=== PATIENT | female | born 1995 | race Caucasian/White ===

== ENCOUNTER 2024-02-02 10:42 | Observation (INO) ==
--- NOTE | 2024-02-02 11:38 | CT Scan Report ---
CT OF THE HEAD WITHOUT CONTRAST CLINICAL HISTORY: Headache. COMPARISON STUDY: No previous studies for comparison. CT DOSE: 547.75 mGy.cm TECHNIQUE: Helical axial images of the head were obtained without IV contrast. Automated exposure con trol was utilized for the study. A dose lowering technique was utilized adhering to the principles o f ALARA. FINDINGS: No acute intracranial hemorrhage, midline shift or mass effect is present. There is no evid ence for hydrocephalus. 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 Basal cisterns are patent. There are no extra-axial collections. A small hypodense tract within the left frontal lobe is likely related to suspected previous shunt catheter/postoperative change given overlying neel hole. This is chronic. There are no findings to suggest acute dural sinus thrombosis or acute territorial infarct. IMPRESSION: No acute intracranial findings. ACT 112: Negative or not required by law. Electronically signed by: Anthony Wilburn M.D. 02/02/2024 11:36 AM
[2024-02-02 11:47] LABS: Basophils # (auto) 0.07 K/uL (0.00-0.20); Eosinophils # (auto) 0.12 K/uL (0.00-0.50); Eosinophils % (auto) 1.8 %; Hematocrit (blood only) 39.3 % (37.0-47.0); Hemoglobin 12.8 g/dl (12.0-16.0); Immature Granulocytes # (auto) 0.02 K/uL (0.01-0.20); Immature Granulocytes % (auto) 0.3 %; Lymphocytes % (auto) 32.1 %; Mean Corpuscular Hemoglobin 27.6 pg (25.0-34.0); Mean Corpuscular Hgb Conc 32.6 g/dL (32.0-36.0); Mean Corpuscular Volume 84.7 fL (80.0-100.0); Mean Platelet Volume 10.4 fL (9.4-12.4); Monocytes # (auto) 0.43 K/uL (0.11-0.59); Monocytes % (auto) 6.3 %; Neutrophils # (auto) 4.01 K/uL (1.40-6.50); Neutrophils % (auto) 58.5 %; Platelet Count 274 K/uL (130-400); RDW Coefficient of Variation 12.1 % (11.5-14.5); RDW Standard Deviation 36.9 fL (36.4-46.3); Red Blood Count 4.64 M/uL (4.20-5.40); White Blood Count 6.85 K/ul (4.8-10.8)
[2024-02-02 11:54] LABS: Albumin Globulin Ratio 1.5 (0.9-2); Albumin Level 4.5 gm/dl (3.4-5.0); BUN Creatinine Ratio 20.3 (10-20); Bilirubin,Total 0.3 mg/dl (0.2-1.0); Calcium 9.2 mg/dl (8.6-10.3); Creatinine Clr Calc Pharmacy 97.1 ml/min; Est GFR (African American) 118.9 ml/min; Est GFR (Non-African American) 102.6 ml/min; Globulin 3.1 gm/dl (2.5-4.0); Potassium 3.7 mmol/L (3.5-5.1); Total Protein 7.6 gm/dl (6.0-8.3)
[2024-02-02 12:19] LABS: Appearance Urine Clear (Clear); Bacteria Urine Automated 1+ (None Seen); Bilirubin Urine Negative (Negative); Blood Urine Negative (Negative); Cast Urine Automated 0-2 /lpf (0-2); Color Urine Yellow; Glucose Urine UA Negative (Negative); Ketones Urine Negative (Negative); Leukocyte Esterase Urine 1+ (Negative); Nitrite Urine Negative (Negative); Protein Urine Negative (Negative); RBC Urine Automated 0-2 /hpf (0-2); Specific Gravity Urine 1.013 (1.000-1.030); Urobilinogen Urine Negative (Negative); pH Urine 5.5 (4.5-7.5)
--- NOTE | 2024-02-02 12:29 | Emergency Department Note ---
Impression & Plan Seizure, Confusion, Expressive aphasia ED Provider Note NAME: YANNI FISCHER AGE: 28 SEX: F : 1995 ARRIVES VIA: Walk-In INFORMANT: Patient ED PROVIDER(S): Selwyn Fall DO CHIEF COMPLAINT: Slurred speech, tremors HPI: Patient is a 28-year-old female who presents to the ER for tremors in the bilateral arms and in the bilateral face today. This has been going on for the past 2 weeks per the significant other who gives additional history. Associated with this she has some expressive aphasia. She denies any change or loss of vision. No chest pain or shortness of breath. No weakness or numbness in the arms or legs. 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 She had this done in [place]. ADDITIONAL HISTORY OBTAINED: Per HPI Chronic Medical/Social Conditions Affecting Care: Per HPI PAST MEDICAL HISTORY:See Below PAST SURGICAL HISTORY:See Below FAMILY HISTORY:See Below SOCIAL HISTORY:See Below HOME MEDICATIONS:See Below ALLERGIES:See Below VITALS:See Below PHYSICAL EXAMINATION: GENERAL: Sitting up in bed, alert, well appearing, well nourished, no distress, non-toxic EYE EXAM: normal conjunctiva. PERRL and EOM's grossly intact. OROPHARYNX: no exudate, no erythema, lips, buccal mucosa, and tongue normal and mucous membranes are moist NECK: supple, no nuchal rigidity, no adenopathy, non-tender LUNGS: Clear to auscultation. Normal chest wall mechanics HEART: no murmurs, S1 normal and S2 normal ABDOMEN: abdomen soft, non-tender, normo-active bowel sounds, no masses, no rebound or guarding. BACK: Back is symmetrical on inspection and there is no deformity, no midline tenderness, no CVA tenderness. SKIN: no rashes and no bruising UPPER EXTREMITIES: upper extremities are grossly normal. LOWER EXTREMITIES: No pitting edema. NEURO EXAM: Normal sensorium, cranial nerves II-XII intact, normal speech, no weakness of arms, no weakness of legs. No drift. Finger to nose intact. Gross sensation intact. MEDICAL DECISION MAKING: Patient is a 28-year-old female who presents ER for the above-stated complaint. IV was established blood work was obtained. Labs show no significant leukocytosis or anemia. BMP with slightly elevated chloride at 108. LFTs bilirubin was unremarkable. UA was slightly contaminated. was negative. CT angios of the head and neck was negative for any acute pathology. Her she telestroke was consulted and evaluated the patient at bedside. They felt that this was most consistent with focal seizures. They recommended Keppra 750 twice daily until Lamictal was titrated up to 125 twice daily over the next several weeks. They recommended admission MRI and EEG. This was discussed with the hospitalist for further evaluation management and treatment. Consults/Care Managements Discussions: Per [facility] Triage Nursing notes reviewed. Limited review of prior medical records performed Vital Signs: reviewed and remarkable for no significant abnormalities Differential diagnosis: Differential Diagnosis includes but is not limited to ischemic Stroke, hemorrhagic stroke, bells palsy, mass, neoplasm, migraine headache, seizure, subarachnoid hemorrhage, TIA, and transient global amnesia. ER treatment provided: See below Diagnostics interpreted by me include EKG and cardiac monitoring as listed below: -Cardiac Monitoring: An order was placed for continuous cardiac monitoring. The monitor shows a rate of 60 with sinus rhythm. -ECG: Sinus rhythm rate 55 Normal axis No PVCs QTc 422 -Laboratory studies:Interpreted by me as stated above in MDM and shown below. Imaging studies: Xrays: As interpreted by me:none CTs show: CT of the head per my preliminary interpretation showed no obvious large bleed CT of the head and angios of the head and neck were negative for any acute pathology per radiology Procedures:none Critical Care: None Past Med/Surg History Problem List (Updated 02/02/24 @ 17:53 by Selwyn Fall DO) Expressive aphasia (Acute) Confusion (Acute) Partial seizure Seizure (Acute) Back pain (Acute) Vomiting (Acute) Medical History (Updated 02/02/24 @ 17:53 by Selwyn Fall DO) History of mood disorder Surgical History (Updated 02/02/24 @ 15:41 by Niki Arcos PA-C) Hx of bilateral salpingectomy Hx of tympanostomy tubes Hx of cholecystectomy 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 Cyst resulting in hydrocephalus Family History (Updated 02/02/24 @ 15:42 by Niki Arcos PA-C) Denies family history of Seizure Stroke Social History (Updated 02/02/24 @ 15:42 by Niki Arcos PA-C) Smoking Status: Current every day smoker Tobacco Type: E-cigarettes / Vaping Preferred Language: [place] Islander Communication Ability: Effective marital status: Feels Safe at Home: Yes Allergies Allergies Allergy/AdvReac Type Severity Reaction Status Date / Time No Known Allergies Allergy Unverified 05/28/16 23:33 Home Meds Home Medications Medication Instructions Recorded Confirmed Lamotrigine (Lamictal) 25 mg PO BID #0 tabs 05/28/16 02/02/24 alprazolam 0.25 mg tablet 0.25 mg PO QID PRN Anxiety 02/02/24 02/02/24 dicyclomine 10 mg capsule 10 mg PO QID PRN cramping 02/02/24 02/02/24 Previous Rx's Medication Instructions Recorded levetiracetam 750 mg tablet 750 mg PO BID #60 tabs 02/02/24 (Keppra) Results & Data (ED) Vital Signs Vital Signs - 24 hr 02/02/24 11:02 02/02/24 12:50 02/02/24 13:06 Temperature 36.8 C Temperature Source Temporal Artery Scan Pulse Rate 95 H Pulse Rate [Apical] 53 L Pulse Rhythm Regular Pulse Rhythm [Apical] Pulse Strength Normal Pulse Strength [Apical] Respiratory Rate 20 20 18 Respiratory Effort / Characteristics Non-Labored Spontaneous Non-Labored Respiratory Depth Normal Normal Respiratory Pattern Blood Pressure 130/64 Blood Pressure [Left Arm] 100/59 L 106/67 Blood Pressure Mean 86 Blood Pressure Mean [Left Arm] 72 80 Blood Pressure Position [Left Arm] Lying Pulse Oximetry 99 100 100 Oxygen Delivery Method Room Air Room Air Room Air Sepsis Recent Fever Within 48 Hours No Sepsis New/Unexplained Change in Mental Status N/A Sepsis Action Taken by Nursing No Action Required 02/02/24 14:47 Temperature Temperature Source Pulse Rate Pulse Rate [Apical] 59 L Pulse Rhythm Pulse Rhythm [Apical] Regular Pulse Strength Pulse Strength [Apical] Normal Respiratory Rate 16 Respiratory Effort / Characteristics Non-Labored Respiratory Depth Normal Respiratory Pattern Regular Blood Pressure Blood Pressure [Left Arm] 114/80 Blood Pressure Mean Blood Pressure Mean [Left Arm] 91 Blood Pressure Position [Left Arm] Lying Pulse Oximetry 100 Oxygen Delivery Method Room Air Sepsis Recent Fever Within 48 Hours Sepsis New/Unexplained Change in Mental Status Sepsis Action Taken by Nursing Laboratory Data 02/02/24 11:15 02/02/24 11:15 Lab Results 02/02/24 02/02/24 02/02/24 Range/Units 11:15 11:59 12:03 WBC 6.85 (4.8-10.8) K/ul RBC 4.64 (4.20-5.40) M/uL Hgb 12.8 (12.0-16.0) g/dl Hct 39.3 (37.0-47.0) % MCV 84.7 (80.0-100.0) fL MCH 27.6 (25.0-34.0) pg MCHC 32.6 (32.0-36.0) g/dL RDW Std Deviation 36.9 (36.4-46.3) fL RDW Coeff of Gabe 12.1 (11.5-14.5) % Plt Count 274 (130-400) K/uL MPV 10.4 (9.4-12.4) fL Immature Gran % (Auto) 0.3 % Neut % (Auto) 58.5 % Lymph % (Auto) 32.1 % [place] % (Auto) 6.3 % Eos % (Auto) 1.8 % Baso % (Auto) 1.0 % Neut # (Auto) 4.01 (1.40-6.50) K/uL Lymph # (Auto) 2.20 (1.20-3.40) K/uL [place] # (Auto) 0.43 (0.11-0.59) K/uL Eos # (Auto) 0.12 (0.00-0.50) K/uL Baso # (Auto) 0.07 (0.00-0.20) K/uL Immature Gran # (Auto) 0.02 (0.01-0.20) K/uL Sodium 136 (136-145) mmol/L Potassium 3.7 (3.5-5.1) mmol/L Chloride 108 H (98-107) mmol/L Carbon Dioxide 23 (21-32) mmol/L Anion Gap 5 (3-11) BUN 16 (6-23) mg/dl Creatinine 0.79 (0.6-1.2) mg/dl Est Cr Clr Drug Dosing 97.1 ml/min Est GFR ( Amer) 118.9 ml/min Est GFR (Non-Af Amer) 102.6 ml/min BUN/Creatinine Ratio 20.3 H (10-20) Glucose 101 H (70-99(Fasting)) mg/dl Calcium 9.2 (8.6-10.3) mg/dl Total Bilirubin 0.3 (0.2-1.0) mg/dl AST 16 (13-39) U/L ALT 11 (7-52) U/L Alkaline Phosphatase 55 (34-104) U/L Total Protein 7.6 (6.0-8.3) gm/dl Albumin 4.5 (3.4-5.0) gm/dl Globulin 3.1 (2.5-4.0) gm/dl Albumin/Globulin Ratio 1.5 (0.9-2) Urine Color Yellow Urine Appearance Clear (Clear) Urine pH 5.5 (4.5-7.5) Ur Specific [place] 1.013 (1.000-1.030) Urine Protein Negative (Negative) Urine Glucose (UA) Negative (Negative) Urine Ketones Negative (Negative) Urine Blood Negative (Negative) Urine Nitrite Negative (Negative) Urine Bilirubin Negative (Negative) Urine Urobilinogen Negative (Negative) Ur Leukocyte Esterase 1+ H (Negative) Urine WBC (Auto) 6-10 H (0-5) /hpf Urine RBC (Auto) 0-2 (0-2) /hpf U Hyaline Cast (Auto) 0-2 (0-2) /lpf U Epithel Cells (Auto) 3-5 H (0-2) /hpf Urine Bacteria (Auto) 1+ H (None Seen) POC Ur Test NEG (NEG) Administered Medications Lactated Ringer's (Lr) 1,000 mls @ 125 mls/hr IV .Q8H [facility] Stop: 02/02/24 23:59 Last Admin: 02/02/24 16:52 Dose: 125 mls/hr Documented By: NICHOLAS Discontinued Medications Ioversol (Optiray 320 125ml) 120 ml IV ONCE ONE Stop: 02/02/24 13:02 Last Admin: 02/02/24 13:02 Dose: 120 ml Documented By: NARINDER Levetiracetam (Levetiracetam 250 Mg Tab) 750 mg PO NOW STA Stop: 02/02/24 14:22 Last Admin: 02/02/24 14:47 Dose: 750 mg Documented By: MARQUISE Imaging Data Radiologist's Impression: Head CT 02/02/24 11:07 CT OF THE HEAD WITHOUT CONTRAST CLINICAL HISTORY: Headache. COMPARISON STUDY: No previous studies for comparison. CT DOSE: 547.75 mGy.cm TECHNIQUE: Helical axial images of the head were obtained without IV contrast. Automated exposure control was utilized for the study. A dose lowering technique was utilized adhering to the principles of ALARA. FINDINGS: No acute intracranial hemorrhage, midline shift or mass effect is present. There is no evidence for hydrocephalus. 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 Basal cisterns are patent. There are no extra-axial collections. A small hypodense tract within the left frontal lobe is likely related to suspected previous shunt catheter/postoperative change given overlying neel hole. This is chronic. There are no findings to suggest acute dural sinus thrombosis or acute territorial infarct. IMPRESSION: No acute intracranial findings. ACT 112: Negative or not required by law. Electronically signed by: Anthony Wilburn M.D. 02/02/2024 11:36 AM Head CTA 02/02/24 12:29 HEAD CTA HISTORY: slurred speech TECHNIQUE: Multiaxial CT images of the head were performed following the intravenous administration of contrast to evaluate the major cerebral vessels. 3D/MIP images were also obtained. Sagittal and coronal reformats were reviewed. A dose lowering technique was utilized adhering to the principles of ALARA. COMPARISON: None. FINDINGS: There is no mass, hematoma, midline shift, or acute infarct. Visualized intracranial internal carotid arteries, distal vertebral arteries, and basilar artery are widely patent. There is no significant stenosis, occlusion, or aneurysm seen within the bilateral ACAs, MCAs, or corporate tax manager. The major dural venous sinuses are patent. IMPRESSION: No significant stenosis, occlusion, or aneurysm within the [place] of [place]. ACT 112: Negative or not required by law. Electronically signed by: Javad Webber M.D. 02/02/2024 1:34 PM Neck CTA 02/02/24 12:29 CT ANGIOGRAM OF THE NECK CLINICAL HISTORY: Slurred speech. COMPARISON STUDY: No priors. TECHNIQUE: Following the IV administration of 120 of Optiray 320, CT angiogram of the neck was performed from the aortic arch to the skull base. Images are reviewed in the axial, sagittal, and coronal planes. 3-D MIPS images are created and assessed. IV contrast was administered without complication. All measurements were calculated based on NASCET criteria. A dose lowering technique was utilized adhering to the principles of ALARA. CT DOSE: 460.15 mGy.cm FINDINGS: Thoracic aorta: Visualized portions of the thoracic aorta are normal in caliber. The aortic arch demonstrates standard 3-vessel anatomy. Right carotid arterial system: The right common carotid artery is widely patent, as are the right internal and external carotid arteries. Left carotid arterial system: The left common carotid artery is widely patent, as are the left internal and external carotid arteries. Vertebral arteries: The vertebral arteries are widely patent bilaterally and codominant. Subclavian arteries: Widely patent bilaterally. Intracranial vasculature: The visualized intracranial vessels at the skull base are patent. Jugular veins: Widely patent bilaterally. Brain parenchyma: The visualized brain parenchyma the skull base is within normal limits. Lung apices: Partially visualized upper lobe lung parenchyma appears clear. Soft tissues: The visualized pharyngeal soft tissues are normal in appearance noting angiographic phase technique. The oropharyngeal airway appears widely patent. The salivary and thyroid glands are normal in appearance. No cervical lymphadenopathy is seen. Skeletal structures: The visualized calvarium at the skull base appears intact. The imaged cervical spine is within normal limits. Sinuses and mastoids: The visualized paranasal sinuses are clear. The mastoid air cells are well pneumatized. IMPRESSION: Unremarkable CT angiogram of the neck. ACT 112: Negative or not required by law. Electronically signed by: Jorge Davidson M.D. 02/02/2024 2:00 PM Discharge Plan Visit Data Chief Complaint: Head Pain Stated Complaint: TREMORS, HX OF BRAIN CYST DRAIN ED Provider: Selwyn Fall Discharge Problem: Seizure, Confusion, Expressive aphasia Patient Disposition: Admitted As Inpatient Discharge Instructions Interventions: ED Discharge Assessment Last Done: 02/02/24 16:34
[2024-02-02] MEDS: OPTIRAY 320 125ml IV ONE (13:02)
--- NOTE | 2024-02-02 13:35 | CT Scan Report ---
HEAD CTA HISTORY: slurred speech TECHNIQUE: Multiaxial CT images of the head were performed following the intravenous administration o f contrast to evaluate the major cerebral vessels. 3D/MIP images were also obtained. Sagittal and co jacob reformats were reviewed. A dose lowering technique was utilized adhering to the principles of A ABBIE. COMPARISON: None. FINDINGS: There is no mass, hematoma, midline shift, or acute infarct. Visualized intracranial business development intern al carotid arteries, distal vertebral arteries, and basilar artery are widely patent. There is no sig nificant stenosis, occlusion, or aneurysm seen within the bilateral ACAs, MCAs, or concrete smoother. The major du ral venous sinuses are patent. IMPRESSION: No significant stenosis, occlusion, or aneurysm within the [place] of [place]. ACT 112: Negative or not required by law. Electronically signed by: Javad Webber M.D. 02/02/2024 1:34 PM
--- NOTE | 2024-02-02 14:01 | CT Scan Report ---
CT ANGIOGRAM OF THE NECK CLINICAL HISTORY: Slurred speech. COMPARISON STUDY: No priors. TECHNIQUE: Following the IV administration of 120 of Optiray 320, CT angiogram of the neck was perfor med from the aortic arch to the skull base. Images are reviewed in the axial, sagittal, and coronal p lanes. 3-D MIPS images are created and assessed. IV contrast was administered without complication. A ll measurements were calculated based on NASCET criteria. A dose lowering technique was utilized adh ering to the principles of ALARA. CT DOSE: 460.15 mGy.cm FINDINGS: Thoracic aorta: Visualized portions of the thoracic aorta are normal in caliber. The aortic arch demo nstrates standard 3-vessel anatomy. Right carotid arterial system: The right common carotid artery is widely patent, as are the right int ernal and external carotid arteries. Left carotid arterial system: The left common carotid artery is widely patent, as are the left rn international al and external carotid arteries. Vertebral arteries: The vertebral arteries are widely patent bilaterally and codominant. Subclavian arteries: Widely patent bilaterally. Intracranial vasculature: The visualized intracranial vessels at the skull base are patent. Jugular veins: Widely patent bilaterally. Brain parenchyma: The visualized brain parenchyma the skull base is within normal limits. Lung apices: Partially visualized upper lobe lung parenchyma appears clear. Soft tissues: The visualized pharyngeal soft tissues are normal in appearance noting angiographic pha se technique. The oropharyngeal airway appears widely patent. The salivary and thyroid glands are nor mal in appearance. No cervical lymphadenopathy is seen. Skeletal structures: The visualized calvarium at the skull base appears intact. The imaged cervical s pine is within normal limits. Sinuses and mastoids: The visualized paranasal sinuses are clear. The mastoid air cells are well pneu matized. IMPRESSION: Unremarkable CT angiogram of the neck. ACT 112: Negative or not required by law. Electronically signed by: Jorge Davidson M.D. 02/02/2024 2:00 PM
[2024-02-02] MEDS: levETIRAcetam 250 MG TAB PO STA (14:47)
--- NOTE | 2024-02-02 15:13 | History & Physical Report ---
Date of Service February 02, 2024 Assessment & Plan (1) Partial seizure: (2) Hx of craniotomy: Plan This is a 28-year-old female who has a significant past medical history of mood disorder, 3 vaginal births and history of CVI cyst s/p craniotomy and fenestration who presents to ED after having episodes of twitching/tremoring of hands/arms/face off and on for the last 2-3 weeks. Pt reports twitching, tremoring of upper extremities, lower eye lids , hands for 3 weeks that would happen daily with a period of extreme fatigue after that could last several hours. CT head, CTA head and neck negative in ED. 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 Nunez Last MRI 10/28 revealed decreasing size which now measures 3.7 x 2.2 x 2.2 cm obtain EEG, MRI Brain seizure protocol, neuro checks, a.m. labs Keppra 750mg BID started in ED Pt already on lamictal for mood stabilization 25mg bid, Tele neuro recommends increasing to 25mg in a.m. and 50mg in p.m.; titrate up by 25mg weekly towards a gaol of 250mg bid prn IV ativan for break through seizure if needed LR 125cc/hr x 1 L Consult [facility] neurology, she will need close OP follow up Abnormal Urinalysis UA with leuks, epis, bacturia, possible contaminant pt denies sx and is w/o fever or leukocytosis monitor urine culture DVT ppx: encourage ambulation FULL CODE PCP: Roxy Gregg Pt was seen and examined in collaboration with Dr. Roche, please see addendum A total of 60 minutes was spent coordinating, documenting, and providing care for this patient excluding time spent in the performance of separately billed services. This included personally viewing all current laboratories and imaging studies, medication reconciliation, outpatient chart review, and discussion with specialists. History of Present Illness Chief Complaint: Twitching of eyes/arms/face off and on x 2-3 weeks. Primary Care Provider: Roxy Gregg This is a 28-year-old female who has a significant past medical history of mood disorder, 3 vaginal births and history of CVI cyst s/p craniotomy and fenestration who presents to ED after having episodes of twitching/tremoring of hands/arms/face off and on for the last 2-3 weeks. She reports the tremoring of her arms reminds her of her grandpap due to his older age. She has never had anything like this before. She states episodes would last sevreal minutes, resolve and then she would be extremely tired after episodes. Sometimes somnolence would last a few hours. She and her work at the [employer]. She got an episode today and became extremely fatigued after. She called her neurologist at [facility] who urged her to get a neurological evaluation. 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 In June of 2023 she was in an accident that prompted a CT scan. CT in June revealed cyst grew 10x causing hydrocephalus. She reports the last 2 years having cluster headaches and short term memory issues. 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 She was initially seen at [facility] who referred her to [facility] where she underwent L craniotomy with neel hole, put holes in cyst with fenestration. Her last MRI was november 02, 2023 which revealed interval decrease in size of the cyst. They do not have her following up for approx 1 year. Her Neurologist is Dr Nunez of [facility]. Currently she feels tired. She denies f/c/s, chest pain, sob, n/v/d, abd pain. Her appetite has been okay. She reports being on antiseizure medication 2 weeks post op from brain surgery, but those have since been discontinued. in ED patient was seen and evaluated by [facility] telestroke in which it was suspected that she was experiencing partial seizures. It was recommended she be admitted to telemetry floor and start on Lamictal titration as well as Keppra 750 mg twice daily. Patient is currently already on Lamictal 25 mg twice daily for mood stabilization. It is also recommended that MRI and EEG be performed. Allergies Allergy/AdvReac Type Severity Reaction Status Date / Time No Known Allergies Allergy Unverified 05/28/16 23:33 Home Medications Medication Instructions Recorded Confirmed Type Lamotrigine (Lamictal) 25 mg PO BID #0 tabs 05/28/16 02/02/24 History alprazolam 0.25 mg tablet 0.25 mg PO QID PRN Anxiety 02/02/24 02/02/24 History dicyclomine 10 mg capsule 10 mg PO QID PRN cramping 02/02/24 02/02/24 History levetiracetam 750 mg tablet 750 mg PO BID #60 tabs 02/02/24 Rx (Keppra) Past Med/Surg History Problem List (Updated 02/02/24 @ 17:53 by Selwyn Fall DO) Expressive aphasia (Acute) Confusion (Acute) Partial seizure Seizure (Acute) Back pain (Acute) Vomiting (Acute) Medical History (Updated 02/02/24 @ 17:53 by Selwyn Fall DO) History of mood disorder Surgical History (Updated 02/02/24 @ 15:41 by Niki Arcos PA-C) Hx of bilateral salpingectomy Hx of tympanostomy tubes Hx of cholecystectomy 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 Cyst resulting in hydrocephalus Family History (Updated 02/02/24 @ 15:42 by Niki Arcos PA-C) Denies family history of Seizure Stroke Social History (Updated 02/02/24 @ 15:42 by Niki Arcos PA-C) Smoking Status: Never smoker Hx Alcohol Use: Yes Alcohol type: beer, wine and hard liquor Hx Substance Use: No Preferred Language: Spanish Communication Ability: Effective [employer] Required: No Beliefs That Will Affect Care: None marital status: Current Living Situation: Spouse Other Information That Helps Us Care for You: No Feels Safe at Home: Yes Safety Concerns: Feels Safe At This Time Assistive Devices: Glasses Review of Systems Review of Systems: All systems reviewed & are unremarkable except as noted in HPI & below Results & Data Results & Data Vital Signs (Past 12 Hours) Vital Signs Temp Pulse Pulse Resp BP BP Pulse Ox 02/02/24 14:47 59 L 16 114/80 100 02/02/24 13:06 18 106/67 100 02/02/24 12:50 53 L 20 100/59 L 100 02/02/24 11:02 36.8 C 95 H 20 130/64 99 O2 Del Method 02/02/24 14:47 Room Air 02/02/24 13:06 Room Air 02/02/24 12:50 Room Air 02/02/24 11:02 Room Air Laboratory Results I have independently reviewed and interpreted patient's admitting labs including CBC, CMP, UA Diagnostic Findings Head CT 02/02/24 11:07 CT OF THE HEAD WITHOUT CONTRAST CLINICAL HISTORY: Headache. COMPARISON STUDY: No previous studies for comparison. CT DOSE: 547.75 mGy.cm TECHNIQUE: Helical axial images of the head were obtained without IV contrast. Automated exposure control was utilized for the study. A dose lowering technique was utilized adhering to the principles of ALARA. FINDINGS: No acute intracranial hemorrhage, midline shift or mass effect is present. There is no evidence for hydrocephalus. 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 Basal cisterns are patent. There are no extra-axial collections. A small hypodense tract within the left frontal lobe is likely related to suspected previous shunt catheter/postoperative change given overlying neel hole. This is chronic. There are no findings to suggest acute dural sinus thrombosis or acute territorial infarct. IMPRESSION: No acute intracranial findings. ACT 112: Negative or not required by law. Electronically signed by: Anthony Wilburn M.D. 02/02/2024 11:36 AM Head CTA 02/02/24 12:29 HEAD CTA HISTORY: slurred speech TECHNIQUE: Multiaxial CT images of the head were performed following the intravenous administration of contrast to evaluate the major cerebral vessels. 3D/MIP images were also obtained. Sagittal and coronal reformats were reviewed. A dose lowering technique was utilized adhering to the principles of ALARA. COMPARISON: None. FINDINGS: There is no mass, hematoma, midline shift, or acute infarct. Visualized intracranial internal carotid arteries, distal vertebral arteries, and basilar artery are widely patent. There is no significant stenosis, occlusion, or aneurysm seen within the bilateral ACAs, MCAs, or sexual abuse counsellor. The major dural venous sinuses are patent. IMPRESSION: No significant stenosis, occlusion, or aneurysm within the [place]. ACT 112: Negative or not required by law. Electronically signed by: Javad Webber M.D. 02/02/2024 1:34 PM Neck CTA 02/02/24 12:29 CT ANGIOGRAM OF THE NECK CLINICAL HISTORY: Slurred speech. COMPARISON STUDY: No priors. TECHNIQUE: Following the IV administration of 120 of Optiray 320, CT angiogram of the neck was performed from the aortic arch to the skull base. Images are reviewed in the axial, sagittal, and coronal planes. 3-D MIPS images are created and assessed. IV contrast was administered without complication. All measurements were calculated based on NASCET criteria. A dose lowering technique was utilized adhering to the principles of ALARA. CT DOSE: 460.15 mGy.cm FINDINGS: Thoracic aorta: Visualized portions of the thoracic aorta are normal in caliber. The aortic arch demonstrates standard 3-vessel anatomy. Right carotid arterial system: The right common carotid artery is widely patent, as are the right internal and external carotid arteries. Left carotid arterial system: The left common carotid artery is widely patent, as are the left internal and external carotid arteries. Vertebral arteries: The vertebral arteries are widely patent bilaterally and codominant. Subclavian arteries: Widely patent bilaterally. Intracranial vasculature: The visualized intracranial vessels at the skull base are patent. Jugular veins: Widely patent bilaterally. Brain parenchyma: The visualized brain parenchyma the skull base is within normal limits. Lung apices: Partially visualized upper lobe lung parenchyma appears clear. Soft tissues: The visualized pharyngeal soft tissues are normal in appearance noting angiographic phase technique. The oropharyngeal airway appears widely patent. The salivary and thyroid glands are normal in appearance. No cervical lymphadenopathy is seen. Skeletal structures: The visualized calvarium at the skull base appears intact. The imaged cervical spine is within normal limits. Sinuses and mastoids: The visualized paranasal sinuses are clear. The mastoid air cells are well pneumatized. IMPRESSION: Unremarkable CT angiogram of the neck. ACT 112: Negative or not required by law. Electronically signed by: Jorge Davidson M.D. 02/02/2024 2:00 PM Medications Administered Medication List Discontinued Medications Ioversol (Optiray 320 125ml) 120 ml IV ONCE ONE Stop: 02/02/24 13:02 Last Admin: 02/02/24 13:02 Dose: 120 ml Documented By: NARINDER Levetiracetam (Levetiracetam 250 Mg Tab) 750 mg PO NOW STA Stop: 02/02/24 14:22 Last Admin: 02/02/24 14:47 Dose: 750 mg Documented By: VME Code Status & VTE Plan Code Status FULL CODE VTE Prophylaxis Plan VTE Prophylaxis will be ordered: No Supervising Physician Co-Signing Physician Notes Pt was seen and examined by myself, Leidy Roche MD on the day of service. Care was coordinated with Niki Arcos PA-C. 28yoF presenting with twitching and tremors, Hx of cavum vellum interpositum s/p craniotomy. Was a stroke alert, telestroke recommending increasing dose of lamictal , adding keppra, EEG, MRI brain as symptoms likely related to seizures. General: Alert, oriented. No acute distress Skin: No noted rashes or bruises Psych: Appropriate mood and affect Neuro: No gross deficits HEENT: NC/AT Chest: Nontender to palpation. CV: RRR Resp: Breath sounds clear bilaterally, no increased effort of breathing. Extremities: No edema in lower extremities bilaterally. Neurology consulted, appreciate further recs. PRN Ativan, telemetry monitoring. Otherwise as above. I spent a total [id number] coordinating, documenting, and providing care for this patient excluding time spent in the performance of separately billed services
[2024-02-02] MEDS ORDERED: LORazepam 2 MG/1 ML VIAL IV PRN (16:33)
[2024-02-02] MEDS ORDERED: FAMOTIDINE 20 MG TAB PO PRN (16:33)
[2024-02-02] MEDS ORDERED: ALPRAZolam 0.25 MG TABLET PO PRN (16:33)
[2024-02-02] MEDS ORDERED: ACETAMINOPHEN 325 MG TAB PO PRN (16:33)
[2024-02-02] MEDS ORDERED: DICYCLOMINE HCL 10 MG CAP PO PRN (16:33)
[2024-02-02] MEDS: LACTATED RINGER'S 1,000 ML IV SCH (16:52)
[2024-02-02] MEDS: GADOBUTROL 65ML VIAL IV ONE (19:05)
--- NOTE | 2024-02-02 19:35 | Magnetic Resonance Report ---
Exam(s): MRI OTHER W/WO Contrast IV Amt: 7mL Gadavist given existing IV EXAM: MR Head Without and With Intravenous Contrast CLINICAL HISTORY: Reason for exam: seizure like activity. TECHNIQUE: Magnetic resonance images of the head/brain without and with intravenous contrast in multiple planes. CONTRAST: Patient received 7mL Gadavist given existing IV of IV contrast COMPARISON: CT head 02/02/24 FINDINGS: Brain: No diffusion restriction to suggest acute cerebral ischemia. No acute intracranial hemorrhage or abnormal extra-axial fluid collection. No mass affect or midline shift. No abnormal parenchymal, ependymal, or leptomeningeal enhancement. Proximal intracranial flow voids appear normal. 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 Nonspecific subcentimeter focus of subcortical white matter signal hyperintensity in the parafalcine left frontal lobe (series 10, image 12). Ventricles: Cavum vellum interpositum, a developmental variant. No hydrocephalus. 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 No acute fracture. Sinuses: Unremarkable as visualized. Mastoid air cells: No significant mastoid effusion. Orbits: Unremarkable as visualized. IMPRESSION: No acute findings in the head/brain. Electronically signed by: Claude Glynn M.D. 02/02/24 19:35 PM
[2024-02-02] MEDS: lamoTRIgine 25 MG TAB PO SCH (19:48)
[2024-02-02] MEDS: levETIRAcetam 250 MG TAB PO SCH (19:49)
[2024-02-02] MEDS ORDERED: MELATONIN 3 MG TAB PO PRN (21:00)
[2024-02-03 07:21] LABS: Basophils # (auto) 0.05 K/uL (0.00-0.20); Basophils % (auto) 0.8 %; Eosinophils # (auto) 0.14 K/uL (0.00-0.50); Eosinophils % (auto) 2.3 %; Hematocrit (blood only) 34.5 % (37.0-47.0); Hemoglobin 11.4 g/dl (12.0-16.0); Immature Granulocytes # (auto) 0.01 K/uL (0.01-0.20); Immature Granulocytes % (auto) 0.2 %; Lymphocytes # (auto) 2.04 K/uL (1.20-3.40); Lymphocytes % (auto) 33.6 %; Mean Corpuscular Hemoglobin 28.1 pg (25.0-34.0); Mean Corpuscular Volume 85.2 fL (80.0-100.0); Mean Platelet Volume 10.9 fL (9.4-12.4); Monocytes # (auto) 0.42 K/uL (0.11-0.59); Monocytes % (auto) 6.9 %; Neutrophils # (auto) 3.41 K/uL (1.40-6.50); Neutrophils % (auto) 56.2 %; Platelet Count 222 K/uL (130-400); RDW Coefficient of Variation 12.3 % (11.5-14.5); Red Blood Count 4.05 M/uL (4.20-5.40); White Blood Count 6.07 K/ul (4.8-10.8)
[2024-02-03 07:58] LABS: Albumin Globulin Ratio 1.6 (0.9-2); Albumin Level 3.8 gm/dl (3.4-5.0); BUN Creatinine Ratio 23.9 (10-20); Bilirubin,Total 0.3 mg/dl (0.2-1.0); Calcium 8.7 mg/dl (8.6-10.3); Creatinine Clr Calc Pharmacy 115.6 ml/min; Est GFR (African American) 139.6 ml/min; Est GFR (Non-African American) 120.5 ml/min; Globulin 2.4 gm/dl (2.5-4.0); Magnesium 1.8 mg/dl (1.7-2.4); Potassium 4.2 mmol/L (3.5-5.1); Total Protein 6.2 gm/dl (6.0-8.3)
[2024-02-03] MEDS: lamoTRIgine 25 MG TAB PO SCH (08:57)
--- NOTE | 2024-02-03 09:14 | Hospitalist Progress Note ---
Date of Service February 03, 2024 Assessment & Plan (1) Partial seizure: (2) Hx of craniotomy: Plan This is a 28-year-old female who has a significant past medical history of mood disorder, 3 vaginal births and history of CVI cyst s/p craniotomy and fenestration who presents to ED after having episodes of twitching/tremoring of hands/arms/face off and on for the last 2-3 weeks. Pt reports twitching, tremoring of upper extremities, lower eye lids , hands for 3 weeks that would happen daily with a period of extreme fatigue after that could last several hours. CT head, CTA head and neck negative in ED. 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 Nunez Last MRI 10/28 revealed decreasing size which now measures 3.7 x 2.2 x 2.2 cm MRI brainno acute finding in the head/brain. Old left frontal calvarial neel hole. Keppra 750mg BID started in ED Pt already on lamictal for mood stabilization 25mg bid, Tele neuro recommends increasing to 25mg in a.m. and 50mg in p.m.; titrate up by 25mg weekly towards a gaol of 250mg bid Consulted neurology; appreciate recommendation. Abnormal Urinalysis UA with leuks, epis, bacturia, possible contaminant pt denies sx and is w/o fever or leukocytosis monitor urine culture DVT ppx: encourage ambulation FULL CODE PCP: Roxy Gregg Please note the above document was generated using voice recognition software. It may contain grammatical, syntax or spelling errors. Any formal questions or concerns about the content, text or information contained within the body of this dictation should be directly addressed to the provider for clarification Admission and Anticipated Discharge Date Admission Date: February 02, 2024 Subjective Patient seen and examined at bedside. Comfortable; not in distress. Denies fever, chills, chest pain, shortness of breath, abdominal pain or urinary symptoms. No significant overnight events Review of Systems Review of Systems: All systems reviewed & are unremarkable except as noted in Subjective Physical Exam Physical Exam: Constitutional: WD/WN, vitals as above, NAD, sitting up in bed, pleasant, conversing easily Respiratory: normal respiratory effort, lungs clear to auscultation, no wheeze, rales, rhonchi. Normal insp/exp effort, no accessory muscle use Cardiovascular: RRR, no murmur, no edema Vessels: no JVD or carotid bruit Chest: normal inspection of chest Abdomen: normal bowel sounds, soft, nontender, no hepatosplenomegaly Musculoskeletal: no cyanosis or clubbing, extremities motor strength 5/5 Skin: no rashes, warm and dry normal turgor Neurologic: PERRL, EOMI, accommodation nl, no face palsy, no dysarthria CN's II- XI intact bilaterally and moves all extremities Psychiatric: A+Ox3, euthymic affect Results & Data Results & Data Vital Signs (Past 12 Hours) Vital Signs Temp Pulse Resp BP Pulse Ox O2 Del Method 02/03/24 07:46 36.7 C 50 L 18 91/58 L 98 Room Air 02/03/24 03:05 36.6 C 61 18 81/53 L 99 Room Air 02/02/24 23:41 36.7 C 56 L 18 104/70 96 Room Air
--- NOTE | 2024-02-03 11:59 | Neurology Consultation ---
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 Plan: Increase lamotrigine to therapeutic dose 100 mg twice daily gradually and once this dose is reached Keppra should be tapered gradually For now continue lamotrigine 25 mg in the morning and 50 mg in the evening for 2 weeks In 2 weeks: Increase lamotrigine to 50 mg twice daily. In 4 weeks :Increase lamotrigine to 50 mg in the morning and 75 mg in the evening In 6 weeks: Increase lamotrigine to 75 mg twice daily In 8 weeks :Increase lamotrigine to 75 mg in the morning and 100 mg in the evening. In 10 weeks : Increase lamotrigine to 100 mg twice daily. And decrease Keppra to 500 mg twice a day. In 11 weeks :Decrease Keppra to 250 mg twice a day while continuing to take lamotrigine 100 mg twice a day. In 12 weeks :Decrease Keppra to 250 mg once a day for 1 week and stop, continue to take the lamotrigine 100 mg twice a day. This should be done under sup ervision of the neurologist recommend follow-up with an outpatient neurologist. Telehealth Consultation Telehealth Information Telehealth Information: I performed this visit using a real-time telehealth connection between my location and the patients location ([facility]). After connecting through interactive tele-video, patient was identified by name and date of and/or wristband check.Patient (or authorized healthcare parts counter representative) was informed that this was a telemedicine visit and it was being conducted confidentially over secure lines. My office door was closed and no one else was present in the room with me.Patient (or authorized healthcare parts counter representative) provided consent to proceed with the visit, expressed an understanding of privacy and security of the telemedicine visit, and gave permission to have a hospital parts counter representative in the room in order to assist with the visit and to conduct portions of the visit, as needed. I informed the patient (or authorized healthcare parts counter representative) that I reviewed their record and presented the opportunity for them to ask any questions regarding the visit today. The patient agreed to participate. 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 She reports that this has been going on for the past week or 2 followed by episodes of fatigue. She was previously on lamotrigine for mood stabilizing purposes has reached a dose of 50 mg twice daily but then got and had to stop these medications. she was recently started on Lamictal and is currently on 25 mg twice daily. Yesterday teleneurology recommended loading with Keppra, she was started on Keppra 750 twice daily with plans to increase Lamictal to 20 5 in the morning and 50 in the evening. She tells me that she had no recurrence of these events, she is with no neurological complaint, denies any recent illnesses or focal neurological deficits Allergies Allergy/AdvReac Type Severity Reaction Status Date / Time No Known Allergies Allergy Unverified 05/28/16 23:33 Home Medications Medication Instructions Recorded Confirmed Type Lamotrigine (Lamictal) 25 mg PO BID #0 tabs 05/28/16 02/02/24 History alprazolam 0.25 mg tablet 0.25 mg PO QID PRN Anxiety 02/02/24 02/02/24 History dicyclomine 10 mg capsule 10 mg PO QID PRN cramping 02/02/24 02/02/24 History levetiracetam 750 mg tablet 750 mg PO BID #60 tabs 02/02/24 Rx (Keppra) Patient History Medical History (Updated 02/02/24 @ 17:53 by Selwyn Fall DO) History of mood disorder Surgical History (Updated 02/02/24 @ 15:41 by Niki Arcos PA-C) Hx of bilateral salpingectomy Hx of tympanostomy tubes Hx of cholecystectomy 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 Zapsky, PA-C) Denies family history of Seizure Stroke Social History (Updated 02/02/24 @ 15:42 by Niki Arcos PA-C) Smoking Status: Never smoker Hx Alcohol Use: Yes Alcohol type: beer, wine and hard liquor Hx Substance Use: No Preferred Language: Kosovan Communication Ability: Effective Automotive Assembler Required: No Beliefs That Will Affect Care: None marital status: Current Living Situation: Spouse Other Information That Helps Us Care for You: No Feels Safe at Home: Yes Safety Concerns: Feels Safe At This Time Assistive Devices: Glasses Review of Systems Constitutional: Patient denies weight loss, fever, chills, and night sweats Eyes: Patient denies change in vision, tearing, pain, and redness ENT: Patient denies pain, bleeding, rhinorrhea, and dysphagia Cardiovascular: Patient denies chest pain, palpitation, dyspnea at rest, and dyspnea with exertion Respiratory: Patient denies shortness of breath, cough, wheezing, and productive cough GI: Patient denies reflux, pain, constipation, and diarrhea Skin: Patient denies rash, dryness, and itching Allergies/Immune System: Patient denies rhinorrhea, seasonal allergies, reaction to current MEDS, and joint swelling Endocrine: Patient denies weight loss, weight gain, temperature intolerance, and excessive thirst Neurological: All negative unless mentioned in the HPI Physical Exam General Constitutional: Appearance normally developed Head and face: normocephalic and atraumatic Eyes: no ptosis, no anisocoria, and no dysconjugate gaze Respiratory: normal effort Cardiovascular: regular rhythm and regular rate Abdomen: non distended Skin: no rashes, lesions, or ulcers noted Psychiatric: normal judgement and insight, normal mood, and normal affect NEUROLOGIC EXAMINATION: Mental Status:alert, oriented to time, place, person, normal recent memory, normal remote memory, normal attention span, normal concentration, normal language and normal fund of knowledge Cranial Nerves: CN 2 - no visual defect on confrontation and pupils round, equal, reactive to light CN 3, 4, 6 - extra-ocular movements intact and no nystagmus CN 5 - facial sensation intact CN 7 - no facial asymmetry CN 8 - intact hearing CN 9, 10 - palate symmetric, normal gag CN 11 - good shoulder shrug CN 12 - tongue midline MOTOR: Strength was at least antigravity throughout, Pronator drift was absent and There were no abnormal movements SENSATION: intact and symmetric to pinprick, light touch, vibration and joint position GAIT: stable, no ataxia and can perform tandem walking COORDINATION: no ataxia with finger to nose testing and heel to wadsworth testing REFLEXES: cannot assess over telemedicine Constitutional: Patient denies weight loss, fever, chills, and night sweats Eyes: Patient denies change in vision, tearing, pain, and redness ENT: Patient denies pain, bleeding, rhinorrhea, and dysphagia Cardiovascular: Patient denies chest pain, palpitation, dyspnea at rest, and dyspnea with exertion Respiratory: Patient denies shortness of breath, cough, wheezing, and productive cough GI: Patient denies reflux, pain, constipation, and diarrhea Skin: Patient denies rash, dryness, and itching Allergies/Immune System: Patient denies rhinorrhea, seasonal allergies, reaction to current MEDS, and joint swelling Endocrine: Patient denies weight loss, weight gain, temperature intolerance, and excessive thirst Neurological: All negative unless mentioned in the HPI Results & Data Vital Signs (Past 12 Hours) Vital Signs Temp Pulse Resp BP Pulse Ox O2 Del Method 02/03/24 10:57 36.8 C 69 18 91/52 L 97 Room Air 02/03/24 07:46 36.7 C 50 L 18 91/58 L 98 Room Air 02/03/24 03:05 36.6 C 61 18 81/53 L 99 Room Air Laboratory Results Laboratory Results - last 24 hr 02/03/24 06:39 WBC 6.07 RBC 4.05 L Hgb 11.4 L Hct 34.5 L MCV 85.2 MCH 28.1 MCHC 33.0 RDW Std Deviation 38.0 RDW Coeff of Gabe 12.3 Plt Count 222 MPV 10.9 Immature Gran % (Auto) 0.2 Neut % (Auto) 56.2 Lymph % (Auto) 33.6 [place] % (Auto) 6.9 Eos % (Auto) 2.3 Baso % (Auto) 0.8 Neut # (Auto) 3.41 Lymph # (Auto) 2.04 [place] # (Auto) 0.42 Eos # (Auto) 0.14 Baso # (Auto) 0.05 Immature Gran # (Auto) 0.01 Sodium 138 Potassium 4.2 Chloride 110 H Carbon Dioxide 22 Anion Gap 6 BUN 16 Creatinine 0.67 Est Cr Clr Drug Dosing 115.6 Est GFR ( Amer) 139.6 Est GFR (Non-Af Amer) 120.5 BUN/Creatinine Ratio 23.9 H Glucose 98 Calcium 8.7 Magnesium 1.8 Total Bilirubin 0.3 AST 11 L ALT 9 Alkaline Phosphatase 43 Total Protein 6.2 Albumin 3.8 Globulin 2.4 L Albumin/Globulin Ratio 1.6 Diagnostic Findings Brain MRI 02/02/24 15:01 Exam(s): MRI OTHER W/WO Contrast IV Amt: 7mL Gadavist given existing IV EXAM: MR Head Without and With Intravenous Contrast CLINICAL HISTORY: Reason for exam: seizure like activity. TECHNIQUE: Magnetic resonance images of the head/brain without and with intravenous contrast in multiple planes. CONTRAST: Patient received 7mL Gadavist given existing IV of IV contrast COMPARISON: CT head 02/02/24 FINDINGS: Brain: No diffusion restriction to suggest acute cerebral ischemia. No acute intracranial hemorrhage or abnormal extra-axial fluid collection. No mass affect or midline shift. No abnormal parenchymal, ependymal, or leptomeningeal enhancement. Proximal intracranial flow voids appear normal. 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 Nonspecific subcentimeter focus of subcortical white matter signal hyperintensity in the parafalcine left frontal lobe (series 10, image 12). Ventricles: Cavum vellum interpositum, a developmental variant. No hydrocephalus. 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 No acute fracture. Sinuses: Unremarkable as visualized. Mastoid air cells: No significant mastoid effusion. Orbits: Unremarkable as visualized. IMPRESSION: No acute findings in the head/brain. Electronically signed by: Claude Glynn M.D. 02/02/24 19:35 PM Medications Administered Home Medications Medication Instructions Recorded Confirmed Last Taken Lamotrigine (Lamictal) 25 mg PO BID #0 tabs 05/28/02/02/24 02/02/24 alprazolam 0.25 mg tablet 0.25 mg PO QID PRN Anxiety 02/02/24 02/02/24 02/02/24 dicyclomine 10 mg capsule 10 mg PO QID PRN cramping 02/02/24 02/02/24 Unknown levetiracetam 750 mg tablet 750 mg PO BID #60 tabs 02/02/24 Unknown (Kevandanara) Active Medications Generic Name Dose Route Start Last Admin Trade Name Renetta PRN Reason Stop Dose Admin Lamotrigine 50 mg 02/02/24 21:00 02/02/24 19:48 Lamotrigine 25 Mg Tab PO 03/03/24 20:59 50 mg HS DEEPTI Administration Lamotrigine 25 mg 02/03/24 09:00 02/03/24 08:57 Lamotrigine 25 Mg Tab PO 03/04/24 08:59 25 mg QAM DEEPTI Administration Levetiracetam 750 mg 02/02/24 21:00 02/03/24 08:57 Levetiracetam 250 Mg Tab PO 03/03/24 20:59 750 mg BID DEEPTI Administration
--- NOTE | 2024-02-03 15:14 | Discharge Summary ---
Date of Service February 03, 2024 Admission HPI Per Admitting Provider This is a 28-year-old female who has a significant past medical history of mood disorder, 3 vaginal births and history of CVI cyst s/p craniotomy and fenestration who presents to ED after having episodes of twitching/tremoring of hands/arms/face off and on for the last 2-3 weeks. She reports the tremoring of her arms reminds her of her grandpap due to his older age. She has never had anything like this before. She states episodes would last sevreal minutes, resolve and then she would be extremely tired after episodes. Sometimes somnolence would last a few hours. She and her work at the [employer]. She got an episode today and became extremely fatigued after. She called her neurologist at [facility] who urged her to get a neurological evaluation. 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 In June of 2023 she was in an accident that prompted a CT scan. CT in June revealed cyst grew 10x causing hydrocephalus. She reports the last 2 years having cluster headaches and short term memory issues. 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 She was initially seen at [facility] who referred her to [facility] where she underwent L craniotomy with neel hole, put holes in cyst with fenestration. Her last MRI was november 02, 2023 which revealed interval decrease in size of the cyst. They do not have her following up for approx 1 year. Her Neurologist is Dr Nunez of [facility]. Currently she feels tired. She denies f/c/s, chest pain, sob, n/v/d, abd pain. Her appetite has been okay. She reports being on antiseizure medication 2 weeks post op from brain surgery, but those have since been discontinued. in ED patient was seen and evaluated by Renetta telestroke in which it was suspected that she was experiencing partial seizures. It was recommended she be admitted to telemetry floor and start on Lamictal titration as well as Keppra 750 mg twice daily. Patient is currently already on Lamictal 25 mg twice daily for mood stabilization. It is also recommended that MRI and EEG be performed. Admission Exam Per Admitting Provider General: Alert, oriented. No acute distress Skin: No noted rashes or bruises Psych: Appropriate mood and affect Neuro: No gross deficits HEENT: NC/AT Chest: Nontender to palpation. CV: RRR Resp: Breath sounds clear bilaterally, no increased effort of breathing. Extremities: No edema in lower extremities bilaterally. Principal Diagnosis Partial seizures Discharge Exam Constitutional: WD/WN, vitals as above, NAD, sitting up in bed, pleasant, conversing easily Respiratory: normal respiratory effort, lungs clear to auscultation, no wheeze, rales, rhonchi. Normal insp/exp effort, no accessory muscle use Cardiovascular: RRR, no murmur, no edema Vessels: no JVD or carotid bruit Chest: normal inspection of chest Abdomen: normal bowel sounds, soft, nontender, no hepatosplenomegaly Musculoskeletal: no cyanosis or clubbing, extremities motor strength 5/5 Skin: no rashes, warm and dry normal turgor Neurologic: PERRL, EOMI, accommodation nl, no face palsy, no dysarthria CN's II- XI intact bilaterally and moves all extremities Psychiatric: A+Ox3, euthymic affect Discharge Data Allergies Allergy/AdvReac Type Severity Reaction Status Date / Time No Known Allergies Allergy Unverified 05/28/16 23:33 Consultations 02/02/24 14:44 ED Decision to Admit Stat 02/02/24 15:13 Consult Neurology Routine Ordered Studies 02/02/24 11:07 CT head/brain wo con Stat 02/02/24 12:29 CT angio head w con Stat CT angio neck with con Stat 02/02/24 15:01 MR brain seizure wo/w con Routine Hospital Course (1) Partial seizure: Plan Patient is a 28-year-old female who has a significant past medical history of mood disorder, 3 vaginal births and history of CVI cyst s/p craniotomy and fenestration who presents to ED after having episodes of twitching/tremoring of hands/arms/face off and on for the last 2-3 weeks. Patient reported twitching, tremoring of upper extremities, lower eye lids , hands for 3 weeks that would happen daily with a period of extreme fatigue after that could last several hours. CT head, CTA head and neck negative in ED. Patient's clinical presentation was concerning for partial seizure. MRI brain was done which did not show any acute findings. EEG was done; results were pending. Neurology evaluation was done; recommended to continue Keppra 750 mg twice a day. She was recommended to have gradual titration of Lamictal as outpatient. Patient to follow-up with PCP and neurology. Patient did not have any tremors at the time of the discharge. Please note the above document was generated using voice recognition software. It may contain grammatical, syntax or spelling errors. Any formal questions or concerns about the content, text or information contained within the body of this dictation should be directly addressed to the provider for clarification Total Time Total Time Spent Total Time Spent (In Minutes): 35 Total Time Includes: Examination of the Patient, Discharge Planning, Medication Reconciliation, Communication With Other Providers and Other Discharge Plan Discharge Items Reason For Visit: SEIZURE Discharge Diagnosis: Partial seizure Activity: Resume your previous activity Non-emergency contact: Primary Care Provider Call non-emergency contact if: you have any medication questions and your symptoms worsen Follow-up/Referrals: Roxy Gregg PA-C [Primary Care Provider] - Louise Lubin PA-C [Physician Energy Rater] - (Date & Time 02/17/2024 12:30 PM Provider Louise Lubin PA-C Department Neurology [facility] ) Diet: Regular Addtl Attending Provider Instructions: You were admitted to the hospital with concern of partial seizure. You were evaluated by neurology; they recommend you to be started on Keppra 750 mg twice daily. Please follow the instructions below; The Plan is to increase lamotrigine to therapeutic dose 100 mg twice daily gradually and once this dose is reached Keppra should be tapered gradually For now continue lamotrigine 25 mg in the morning and 50 mg in the evening for 2 weeks( until February 15) In 2 weeks(From February 16): Increase lamotrigine to 50 mg twice daily. In 4 weeks :Increase lamotrigine to 50 mg in the morning and 75 mg in the evening In 6 weeks: Increase lamotrigine to 75 mg twice daily In 8 weeks :Increase lamotrigine to 75 mg in the morning and 100 mg in the evening. In 10 weeks : Increase lamotrigine to 100 mg twice daily. And decrease Keppra to 500 mg twice a day. In 11 weeks :Decrease Keppra to 250 mg twice a day while continuing to take lamotrigine 100 mg twice a day. In 12 weeks :Decrease Keppra to 250 mg once a day for 1 week and stop, continue to take the lamotrigine 100 mg twice a day. This should be done under supervision of the neurologist recommend follow-up with an outpatient neurologist. An appointment has been made for you on February 16 Pending Studies at Discharge: Yes Studies:: EEG Stand-Alone Forms: [facility] [employer], Smoking Cessation Medications and DC Order Prescriptions: New lamotrigine [Lamictal] 25 mg Tablet 50 mg PO HS Qty: 100 0RF levetiracetam [Keppra] 750 mg tablet 750 mg PO BID Qty: 90 0RF Continued alprazolam 0.25 mg tablet 0.25 mg PO QID PRN (Reason: Anxiety) Rx Instructions: per pt she takes up to 4 times a day. dicyclomine 10 mg capsule 10 mg PO QID PRN (Reason: cramping) Changed Lamotrigine (Lamictal) 25 MG tablet 25 mg PO DAILY Qty: 0 0RF Admission Data Admit Date/Time: 02/02/24 15:01 Attending Provider: Kenny Ann Admit Provider: Leidy Roche Primary Care Provider: Roxy Gregg Other Providers: Logan Flynn; Leidy Roche
[2024-02-03 15:25] VITALS: BP 94/59; RESP 16; TEMP 98.4; O2SAT 98
[2024-02-03 16:24] VITALS: PULSE 77
--- NOTE | 2024-02-03 21:17 | Electrocardiogram Report ---
Test Reason : Blood Pressure : */* mmHG Vent. Rate : 55 BPM Atrial Rate : 55 BPM P-R Int : 152 ms QRS Dur : 86 ms QT Int : 442 ms P-R-T Axes : 67 80 52 degrees QTcB Int : 422 ms Sinus bradycardia with sinus arrhythmia Otherwise normal ECG No previous ECGs available Confirmed by Cosmo Parada ([id number]) on 02/03/2024 9:16:48 PM Referred By: REFERRED SELF Confirmed By: Cosmo Parada
--- NOTE | 2024-02-09 10:07 | Electroencephalogram ---
EEG Procedure Note Date of Service February 03, 2024 Start / End Times Start Time: 613 End Time: 633 Referring Physician Niki Farah History A 28-year-old female with history of colloid cyst status post ventriculostomy for hydrocephalus with possible seizure. EEG performed for evaluation of epileptiform activity. Home Medication List Medication Instructions Recorded Confirmed Type alprazolam 0.25 mg tablet 0.25 mg PO QID PRN Anxiety 02/02/24 02/02/24 History dicyclomine 10 mg capsule 10 mg PO QID PRN cramping 02/02/24 02/02/24 History Lamotrigine (Lamictal) 25 mg PO DAILY #0 tabs 02/03/24 02/02/24 Rx lamotrigine 25 mg tablet (Lamictal) 50 mg (2 x 25 mg) PO HS #100 tabs 02/03/24 Rx levetiracetam 750 mg tablet 750 mg PO BID #90 tabs 02/03/24 Rx (Keppra) Inpatient Medication List Discontinued Medications Gadobutrol (Gadobutrol 65ml Vial) 7 ml IV ONCE ONE Stop: 02/02/24 19:06 Last Admin: 02/02/24 19:05 Dose: 7 ml Documented By: LEIGH ANN Lactated Ringer's (Lr) 1,000 mls @ 125 mls/hr IV .Q8H DEEPTI Stop: 02/02/24 23:59 Last Infusion: 02/03/24 01:11 Dose: Infused Documented By: Admin: 02/02/24 16:52 Dose: 125 mls/hr Documented By: NICHOLAS Ioversol (Optiray 320 125ml) 120 ml IV ONCE ONE Stop: 02/02/24 13:02 Last Admin: 02/02/24 13:02 Dose: 120 ml Documented By: NARINDER Lamotrigine (Lamotrigine 25 Mg Tab) 50 mg PO HS DEEPTI Stop: 03/03/24 20:59 Last Admin: 02/02/24 19:48 Dose: 50 mg Documented By: LIANNE Lamotrigine (Lamotrigine 25 Mg Tab) 25 mg PO QAM DEEPTI Stop: 03/04/24 08:59 Last Admin: 02/03/24 08:57 Dose: 25 mg Documented By: RIVER Levetiracetam (Levetiracetam 250 Mg Tab) 750 mg PO NOW STA Stop: 02/02/24 14:22 Last Admin: 02/02/24 14:47 Dose: 750 mg Documented By: MARQUISE Levetiracetam (Levetiracetam 250 Mg Tab) 750 mg PO BID DEEPTI Stop: 03/03/24 20:59 Last Admin: 02/03/24 08:57 Dose: 750 mg Documented By: Admin: 02/02/24 19:49 Dose: 750 mg Documented By: LIANNE Description This is a 21 electrode EEG with a single channel dedicated to limited EKG. The electrodes were placed in accordance with the International 10-20 system. Report: At the onset of the EEG the patient is awake. The background appears symmetric. There is a normal anterior to posterior gradient. The posterior dominant rhythm is 10-11 hertz. Anteriorly there is low amplitude beta activity. Drowsiness is characterized by reduced blink rate, decreased myogenic artifact. No stage 2 sleep transients were seen. Photic stimulation does not induce any additional abnormalities. Interpretation Impression: This is a normal awake and drowsy routine EEG. There was no evidence of epileptiform activity.
== END 2024-02-03 17:58 | disposition home or self-care (01) | DRG 101 ==
LOC: ED 10:42 → INTOOBSV 15:01 → EDINP 15:01 → SUATTDRO 15:01 → EDINP 16:34 → 2S 19:23